=== PATIENT | male | born 1960 | race Native Hawaiian/Other Pacific Islander ===

== ENCOUNTER 2016-10-30 16:39 | Outpatient (CLI) | payer OTHER | END 2016-10-30 16:40 | disposition home or self-care (01) | LOC: AMB 16:39 | DX: R06.02 Shortness of breath (principal); R53.1 Weakness | CPT/HCPCS: A0425; A0427 ==

== ENCOUNTER 2016-10-30 16:46 | Observation (INO) | payer OTHER ==
[~2016-10-30] VITALS: Ht 170.2 cm; Wt 59.0 kg
[2016-10-30] VITALS (11 sets, daily range): BP systolic 108–181; BP diastolic 49–96; TEMP 97–98.1; Ht 170.2 cm; Wt 59.0 kg
[2016-10-30 17:09] LABS: PLATELET COUNT 227 K/uL (142-355)
[2016-10-30 17:18] LABS: POTASSIUM 3.8 mmol/L (3.6-5.2); SODIUM 138 mmol/L (136-145)
[2016-10-31] VITALS (13 sets, daily range): BP systolic 103–135; BP diastolic 50–78; TEMP 97–98.1
[2016-10-31 06:18] LABS: POTASSIUM 4.2 mmol/L (3.6-5.2); SODIUM 136 mmol/L (136-145)
[2016-10-31 06:30] LABS: PLATELET COUNT 182 K/uL (142-355)
[2016-11-01] VITALS (17 sets, daily range): BP systolic 106–158; BP diastolic 47–88; TEMP 97.4–98.3
[2016-11-01 06:54] LABS: PLATELET COUNT 222 K/uL (142-355)
[2016-11-01 07:26] LABS: POTASSIUM 3.7 mmol/L (3.6-5.2); SODIUM 136 mmol/L (136-145)
== END 2016-11-01 16:30 | disposition left against medical advice (07) ==
LOC: ED 16:46 → MED/SURG 17:37 → ICU 20:55
PROVIDERS: Emergency Medicine; ADMIT Family Medicine
DX: J44.1 Chronic obstructive pulmonary disease with (acute) exacerbation (principal); R07.89 Other chest pain; R09.02 Hypoxemia; F10.20 Alcohol dependence, uncomplicated
CPT/HCPCS: 36415; 36600; 80048; 80053; 80307; 80320; 81000; 82550; 82805; 83036; 83605; 83735; 83880; 84484; 85027; 87040; 87804; 93005; 94640; 94664; 94760; 96365; 96367; 96374; 99220; 99284; G0378; G0479; J0456; J0696; J1885; J2060; J2920; J2930

== ENCOUNTER 2017-02-16 16:24 | Observation (INO) | payer OTHER ==
[~2017-02-16] VITALS: Ht 167.6 cm; Wt 62.2 kg
[2017-02-16 17:14] VITALS: BP 171/90; TEMP 97.6; Ht 167.6 cm; Wt 62.2 kg
[2017-02-16 18:08] LABS: PLATELET COUNT 257 K/uL (142-355)
[2017-02-16 18:12] LABS: SODIUM 138 mmol/L (136-145)
[2017-02-16 19:17] LABS: PARTIAL THROMBOPLASTIN TIME 26.6 SECONDS (24.5-33.6)
[2017-02-16 20:00] VITALS: BP 105/63; TEMP 98.1
[2017-02-17] VITALS: BP 114/52; TEMP 97.5
[2017-02-17 04:00] VITALS: BP 116/49; TEMP 97.5
[2017-02-17 04:28] LABS: PLATELET COUNT 215 K/uL (142-355)
[2017-02-17 04:51] LABS: SODIUM 138 mmol/L (136-145)
[2017-02-17 08:00] VITALS: BP 119/68; TEMP 98
[2017-02-17 12:00] VITALS: BP 126/62; TEMP 98.2
[2017-02-17 16:00] VITALS: BP 114/58; TEMP 97.9
== END 2017-02-17 18:21 | disposition home or self-care (01) ==
LOC: MED/SURG 16:24
PROVIDERS: ADMIT Family Medicine
DX: J44.1 Chronic obstructive pulmonary disease with (acute) exacerbation (principal); I25.2 Old myocardial infarction; I10 Essential (primary) hypertension
CPT/HCPCS: 36415; 36600; 80053; 82805; 83036; 83735; 85027; 85610; 85730; 93005; 94640; 94664; 94760; 96365; 96366; 96367; 96374; 99220; G0378; G0379; J0696; J1885; J2930

== ENCOUNTER 2017-02-25 16:01 | Outpatient (CLI) | payer OTHER | END 2017-02-25 19:09 | disposition home or self-care (01) | LOC: RAD 16:01 | DX: M54.5 Low back pain (principal) ==

== ENCOUNTER 2017-04-28 16:00 | Observation (INO) | payer OTHER ==
[~2017-04-28] VITALS: Ht 165.1 cm; Wt 66.3 kg
[2017-04-28 17:49] VITALS: BP 115/60; TEMP 97.7; Ht 165.1 cm; Wt 66.3 kg
[2017-04-28 17:54] LABS: PLATELET COUNT 254 K/uL (142-355)
[2017-04-28 18:11] LABS: SODIUM 140 mmol/L (136-145)
[2017-04-28 20:19] VITALS: BP 130/65; TEMP 98.4
[2017-04-29] VITALS: BP 111/48; TEMP 98.3
[2017-04-29 04:00] VITALS: BP 122/67; TEMP 97.3
[2017-04-29 06:29] LABS: PLATELET COUNT 229 K/uL (142-355); POTASSIUM 3.7 mmol/L (3.6-5.2); SODIUM 137 mmol/L (136-145)
[2017-04-29 08:00] VITALS: BP 119/56; TEMP 98.3
== END 2017-04-29 12:35 | disposition home or self-care (01) ==
LOC: MED/SURG 16:00
PROVIDERS: ADMIT Family Medicine
DX: J44.9 Chronic obstructive pulmonary disease, unspecified (principal)
CPT/HCPCS: 36415; 36591; 80053; 83735; 85027; 90732; 93005; 94640; 94664; 94760; 96367; 96372; 96374; 99220; G0378; G0379; J1650; J2405; J2780; J2930

== ENCOUNTER 2017-06-24 11:40 | Outpatient (CLI) | payer OTHER | END 2017-06-24 21:18 | disposition home or self-care (01) | LOC: RAD 11:40 | DX: R10.13 Epigastric pain (principal) | CPT/HCPCS: 74022 ==

== ENCOUNTER 2017-07-14 07:47 | Day surgery (SDC) | payer OTHER ==
[2017-07-10 11:27] LABS: PLATELET COUNT 249 K/uL (142-355); POTASSIUM 4.5 mmol/L (3.6-5.2); SODIUM 134 mmol/L (136-145)
== END 2017-07-14 10:15 | disposition home or self-care (01) ==
LOC: OR 07:47
PROVIDERS: Student in an Organized Health Care Education/Training Program
PROC: 0DBP8ZZ Excision of Rectum, Via Natural or Artificial Opening Endoscopic (ICD-10-PCS; principal; 2017-07-14)
DX: D12.8 Benign neoplasm of rectum (principal); K62.1 Rectal polyp; Z12.11 Encounter for screening for malignant neoplasm of colon
CPT/HCPCS: 36415; 80053; 85027; J2001; J2250; J2704; J2765; J3010; J3490; S0028

== ENCOUNTER → 2017-10-10 01:40 | Outpatient (CLI) | payer OTHER | END | disposition home or self-care (01) | LOC: AMB 01:40 | DX: E86.0 Dehydration (principal) ==

== ENCOUNTER 2017-12-14 09:30 | Outpatient (CLI) | payer OTHER | END 2017-12-14 23:33 | disposition home or self-care (01) | LOC: MRI 09:30 | DX: M54.16 Radiculopathy, lumbar region (principal) ==

== ENCOUNTER 2018-01-26 15:42 | Outpatient (CLI) | payer OTHER | END 2018-01-26 20:02 | disposition home or self-care (01) | LOC: RAD 15:42 | DX: R07.81 Pleurodynia (principal) ==

== ENCOUNTER 2018-02-10 21:26 | Emergency (ER) | payer OTHER ==
[~2018-02-10] VITALS: Ht 170.2 cm; Wt 64.4 kg
[2018-02-11] VITALS: BP 134/77; TEMP 98.4
== END 2018-02-11 | disposition home or self-care (01) ==
LOC: ED 21:26
DX: S29.8XXA Other specified injuries of thorax, initial encounter (principal); W18.39XA Other fall on same level, initial encounter; Y92.89 Other specified places as the place of occurrence of the external cause
CPT/HCPCS: 99282; J1885

== ENCOUNTER 2018-02-18 09:44 | Observation (INO) | payer OTHER ==
[2018-02-18] VITALS (9 sets, daily range): BP systolic 113–148; BP diastolic 18–87; TEMP 97.8–98.1; Ht 160 cm; Wt 65.9 kg
[~2018-02-18] VITALS: Ht 160 cm; Wt 65.9 kg
[2018-02-18] MEDS ORDERED: BYSTOLIC10 MG PO (09:50)
[2018-02-18] MEDS ORDERED: TEMA30CA18 PO (09:51)
[2018-02-18] MEDS ORDERED: SERT50TA PO (09:51)
[2018-02-18] MEDS ORDERED: PROAIR HFA IN (09:52)
[2018-02-18] MEDS ORDERED: RANI150T78 PO (09:53)
[2018-02-18] MEDS ORDERED: BUDE1AER5 INH (09:53)
[2018-02-18 10:54] LABS: PLATELET COUNT 264 K/uL (142-355)
[2018-02-18 11:07] LABS: POTASSIUM 4.2 mmol/L (3.6-5.2)
[2018-02-18 11:30] LABS: PARTIAL THROMBOPLASTIN TIME 23.4 SECONDS (24.5-33.6)
[2018-02-18] MEDS ORDERED: PROVENTIL IN (18:09)
[2018-02-18] MEDS ORDERED: TRAM50TA PO (18:11)
[2018-02-19] VITALS: BP 131/53; TEMP 98.2
[2018-02-19 04:00] VITALS: BP 128/77; TEMP 98
[2018-02-19 08:00] VITALS: BP 139/79; TEMP 97.9
== END 2018-02-19 10:36 | disposition home or self-care (01) ==
LOC: ED 09:44 → MED/SURG 11:09
PROVIDERS: Family Medicine; ADMIT Family Medicine
DX: R07.89 Other chest pain (principal); I25.2 Old myocardial infarction; J44.1 Chronic obstructive pulmonary disease with (acute) exacerbation; S20.219A Contusion of unspecified front wall of thorax, initial encounter; W10.8XXA Fall (on) (from) other stairs and steps, initial encounter; Z91.81 History of falling; Y92.89 Other specified places as the place of occurrence of the external cause; Y99.8 Other external cause status
CPT/HCPCS: 36415; 80053; 82550; 84484; 85027; 85610; 85730; 93005; 94640; 94664; 94760; 96374; 96375; 99220; 99284; G0378; J1650; J1885; J2930

== ENCOUNTER 2018-03-01 12:15 | Outpatient (CLI) | payer OTHER ==
[~2018-03-01 12:15] MED LIST: BUDE1AER5 INH; BYSTOLIC10 MG PO; PROAIR HFA IN; PROVENTIL IN; RANI150T78 PO; SERT50TA PO; TEMA30CA18 PO; TRAM50TA PO
[2018-03-01 12:45] LABS: PLATELET COUNT 254 K/uL (142-355)
== END 2018-03-01 22:40 | disposition home or self-care (01) ==
LOC: CT 12:15 → LABW 12:15
PROVIDERS: Nurse Practitioner Family
DX: J40 Bronchitis, not specified as acute or chronic (principal); R91.1 Solitary pulmonary nodule
CPT/HCPCS: 36415; 85027

== ENCOUNTER 2018-04-10 22:30 | Emergency (ER) | payer OTHER ==
[~2018-04-10] VITALS: Ht 160 cm; Wt 63.0 kg
[2018-04-10 22:48] VITALS: BP 111/49; TEMP 97.8
== END 2018-04-10 23:38 | disposition home or self-care (01) ==
LOC: ED 22:30
DX: R04.2 Hemoptysis (principal)
CPT/HCPCS: 99281

== ENCOUNTER 2018-04-20 16:37 | Emergency (ER) | payer OTHER ==
[~2018-04-20] VITALS: Ht 160 cm; Wt 63.0 kg
[2018-04-20 18:00] VITALS: BP 130/84; TEMP 98
== END 2018-04-20 18:00 | disposition home or self-care (01) ==
LOC: ED 16:37
PROC: 0HQFXZZ Repair Right Hand Skin, External Approach (ICD-10-PCS; principal; 2018-04-20)
DX: S61.212A Laceration without foreign body of right middle finger without damage to nail, initial encounter (principal); W26.8XXA Contact with other sharp object(s), not elsewhere classified, initial encounter; Y93.89 Activity, other specified; Y92.012 Bathroom of single-family (private) house as the place of occurrence of the external cause
CPT/HCPCS: 90471; 90715; 99282

== ENCOUNTER 2018-04-26 13:10 | Emergency (ER) | payer OTHER ==
[~2018-04-26] VITALS: Ht 160 cm; Wt 63.0 kg
[2018-04-26 13:39] LABS: PLATELET COUNT 230 K/uL (142-355)
[2018-04-26 13:42] LABS: POTASSIUM 3.7 mmol/L (3.6-5.2)
[2018-04-26 15:15] VITALS: BP 144/76
== END 2018-04-26 15:30 | disposition home or self-care (01) ==
LOC: ED 13:11
DX: C34.90 Malignant neoplasm of unspecified part of unspecified bronchus or lung (principal); J98.01 Acute bronchospasm; R00.1 Bradycardia, unspecified
CPT/HCPCS: 80053; 82550; 82553; 84484; 85027; 93005; 94664; 96374; 99284; J2930

== ENCOUNTER 2018-05-02 12:22 | Emergency (ER) | payer OTHER ==
[~2018-05-02] VITALS: Ht 160 cm; Wt 63.0 kg
[2018-05-02 12:25] VITALS: TEMP 97.7
[2018-05-02 12:59] VITALS: BP 136/76
== END 2018-05-02 13:00 | disposition home or self-care (01) ==
LOC: ED 12:22
DX: Z48.02 Encounter for removal of sutures (principal)

== ENCOUNTER 2018-05-18 21:12 | Emergency (ER) | payer OTHER ==
[~2018-05-18] VITALS: Ht 160 cm; Wt 63.0 kg
[2018-05-18 22:28] LABS: PLATELET COUNT 192 K/uL (142-355)
[2018-05-18 22:48] LABS: POTASSIUM 3.8 mmol/L (3.6-5.2)
[2018-05-19 02:30] VITALS: BP 127/70; TEMP 98.6
== END 2018-05-19 02:30 | disposition short-term general hospital (02) ==
LOC: ED 21:12
PROVIDERS: Internal Medicine
DX: D73.5 Infarction of spleen (principal); R10.32 Left lower quadrant pain
CPT/HCPCS: 36415; 80053; 85027; 96374; 96375; 96376; 99285; J2270; J2405; Q9963

== ENCOUNTER 2018-07-01 12:34 | Outpatient (CLI) | payer OTHER | END 2018-07-01 20:10 | disposition home or self-care (01) | LOC: RAD 12:34 | DX: J44.1 Chronic obstructive pulmonary disease with (acute) exacerbation (principal) ==

== ENCOUNTER 2018-07-30 12:58 | Outpatient (CLI) | payer OTHER | END 2018-07-30 19:18 | disposition home or self-care (01) | LOC: CT 12:58 | DX: M54.2 Cervicalgia (principal) | CPT/HCPCS: 36415; 82565; 84520; Q9963 ==

== ENCOUNTER 2018-08-10 10:30 | Observation (INO) | payer OTHER ==
[~2018-08-10] VITALS: Ht 162.6 cm; Wt 66.8 kg
[2018-08-10 13:57] LABS: PLATELET COUNT 272 K/uL (142-355)
[2018-08-10 14:14] LABS: POTASSIUM 4.9 mmol/L (3.6-5.2)
[2018-08-10 14:24] VITALS: BP 123/73; TEMP 98.3; Ht 162.6 cm; Wt 66.8 kg
--- NOTE | 2018-08-10 14:49 | NUR ---
1450 CALLED TO ROOM PER PT . UPON ENTERING THE ROOM PT VERY ANXIOUS AND UPSET. PT DEMANDING TO SIGN OUT AMA. PT STATES HE UNDERSTANDS AND IS LEAVING RIGHT NOW. 1454 CHUCK NOTIFIED OF PTS DEMAND TO SIGN AMA 1455 PT SIGNED AMA AND LEFT FACILITY WITH AMBULATORY
== END 2018-08-10 14:51 | disposition left against medical advice (07) ==
LOC: MED/SURG 10:30 → ICU 10:52 → MED/SURG 11:31
PROVIDERS: Family Medicine; ADMIT Hospitalist
DX: J44.1 Chronic obstructive pulmonary disease with (acute) exacerbation (principal); I10 Essential (primary) hypertension; I25.2 Old myocardial infarction
CPT/HCPCS: 80053; 82805; 85027; 93005; 94664; 94760; 99220; G0378; G0379; J2930

== ENCOUNTER 2018-12-02 12:52 | Outpatient (CLI) | payer OTHER | END 2018-12-02 19:15 | disposition home or self-care (01) | LOC: CT 12:52 | DX: A31.0 Pulmonary mycobacterial infection (principal) ==

== ENCOUNTER 2019-05-19 13:15 | Outpatient (CLI) | payer OTHER | END 2019-05-19 23:24 | disposition home or self-care (01) | LOC: CT 13:15 | DX: R91.8 Other nonspecific abnormal finding of lung field (principal) ==

== ENCOUNTER 2019-07-18 16:30 | Observation (INO) | payer OTHER ==
[~2019-07-18] VITALS: Ht 152.4 cm; Wt 64.4 kg
[2019-07-18 16:44] VITALS: BP 124/93; TEMP 98.2
[2019-07-18 17:39] LABS: PLATELET COUNT 201 K/uL (142-355); POTASSIUM 5.3 mmol/L (3.6-5.2); SODIUM 130 mmol/L (136-145)
[2019-07-18 19:00] VITALS: BP 92/39
[2019-07-18 19:15] VITALS: BP 106/63
[2019-07-18 19:30] VITALS: BP 101/62; TEMP 99.9
[2019-07-18 20:22] VITALS: BP 120/59; TEMP 98; Ht 152.4 cm; Wt 64.4 kg
[2019-07-18 20:32] VITALS: BP 120/59; TEMP 98
[2019-07-19] VITALS: BP 111/52; TEMP 98.2
--- NOTE | 2019-07-19 00:02 | NUR ---
PT WAS ADMITTED AT 1953PM FROM ER. PT ADMITTED WITH BRONCHITIS/COPD. NS INFUSING AT 150 ML/HR VIA INFUSION PUMP. ALERT AND ORIENTED. ADMISSION ASSESSMENT WAS COMPLETED. NO COMPLAINTS VOICED. AT BEDSIDE. PT EATING MEAL. ATE 100 PERCENT. IV INTACT TO LEFT ANTECUBITAL AREA. SR UP. BEDSIDE TABLE IN EASY REACH.
--- NOTE | 2019-07-19 00:05 | NUR ---
PT WAS GIVEN HHN AND WAS COUGHING UP BLOOD TINGED THICK CLEAR SPUTUM. PT WITH HISTORY OF COPD AND A SMOKER. IV STARTED WITH A 20 GAUGE NEEDLE TO PT'S LEFT HAND. SUCCESSFUL. ANTIBIOTICS WERE STARTED.
[2019-07-19 04:00] VITALS: BP 109/55; TEMP 97.7
[2019-07-19 05:10] LABS: POTASSIUM 4.4 mmol/L (3.6-5.2)
[2019-07-19 05:34] LABS: PLATELET COUNT 178 K/uL (142-355)
[2019-07-19 05:44] LABS: PARTIAL THROMBOPLASTIN TIME 29.9 SECONDS (24.5-33.6)
[2019-07-19 08:00] VITALS: BP 110/52; TEMP 97.5
--- NOTE | 2019-07-19 10:30 | NUR ---
PATIENT STATED HE WANTED TO GO OUTSIDE TO SMOKE. INFORMED PATIENT AND EDUCATED HIM THAT SMOKING WOULD MAKE HIS SYMPTOMS WORSE- HE WAS INITIALLY ADMITTED FOR BRONCHITIS. PATIENT STATED " I NEED TO GO OUTSIDE AND SMOKIE". PATIENT AMBULATED TO THE FRONT ENTRANCE WITH SIGNIFICANT OTHER.
[2019-07-19 12:00] VITALS: BP 127/63; TEMP 97.9
--- NOTE | 2019-07-19 13:22 | NUR ---
PATIENT GIVEN DISCHARGE INSTRUCTIONS WITH VERBAL UNDERSTANDING NOTED. BOTH IVS DISCONTINUED WITH TIP INTACT. NO S/S OF INFILTRATION NOTED. PATIENT REMINDED TO KEEP .
== END 2019-07-19 13:24 | disposition home or self-care (01) ==
LOC: ED 16:30 → MED/SURG 19:33
PROVIDERS: Internal Medicine; ADMIT Emergency Medicine
DX: J98.4 Other disorders of lung (principal); R04.2 Hemoptysis; I25.10 Atherosclerotic heart disease of native coronary artery without angina pectoris; I10 Essential (primary) hypertension; I25.2 Old myocardial infarction; J44.9 Chronic obstructive pulmonary disease, unspecified; K21.9 Gastro-esophageal reflux disease without esophagitis; Z72.0 Tobacco use
CPT/HCPCS: 36415; 80048; 80053; 83605; 84484; 85027; 85379; 85610; 85730; 87502; 93005; 94664; 94760; 96360; 96365; 96375; 99220; 99284; G0378; J0456; J0696; J2930; J3490

== ENCOUNTER 2021-01-23 15:55 | Outpatient (CLI) | payer OTHER ==
[~2021-01-23 15:55] MED LIST changes: +CLARITIN10 MG PO; +DICL75TA4 PO; +LORA0.5T17 PO
== END 2021-01-23 21:38 | disposition home or self-care (01) ==
LOC: CT 15:55
PROVIDERS: ATTEND Registered Nurse
DX: R42 Dizziness and giddiness (principal); M54.2 Cervicalgia; M54.42 Lumbago with sciatica, left side; M54.6 Pain in thoracic spine

== ENCOUNTER 2021-02-04 15:18 | Emergency (ER) | payer OTHER ==
[~2021-02-04] VITALS: Ht 165.1 cm; Wt 66.2 kg
[2021-02-04 15:29] VITALS: TEMP 98.9
[2021-02-04 15:50] LABS: PLATELET COUNT 266 K/uL (142-355)
[2021-02-04 15:58] LABS: POTASSIUM 5.7 mmol/L (3.6-5.2); SODIUM 134 mmol/L (136-145)
[2021-02-04 17:00] VITALS: BP 129/70
== END 2021-02-04 17:20 | disposition home or self-care (01) ==
LOC: ED 15:18
PROVIDERS: Emergency Medicine
DX: J44.1 Chronic obstructive pulmonary disease with (acute) exacerbation (principal); E87.5 Hyperkalemia; R07.89 Other chest pain; F17.210 Nicotine dependence, cigarettes, uncomplicated
CPT/HCPCS: 80053; 82550; 83605; 83880; 84484; 85027; 85379; 93005; 94664; 96374; 99284; J2930

== ENCOUNTER 2021-04-08 14:00 | Outpatient (CLI) | payer OTHER | END 2021-04-08 21:07 | disposition home or self-care (01) | LOC: RAD 14:00 | PROVIDERS: ATTEND Registered Nurse | DX: M54.6 Pain in thoracic spine (principal); M54.2 Cervicalgia; M54.5 Low back pain ==

== ENCOUNTER 2021-07-29 20:28 | Emergency (ER) | payer OTHER ==
[~2021-07-29] VITALS: Ht 165.1 cm; Wt 66.2 kg
[2021-07-29 22:40] VITALS: BP 128/62; TEMP 98.7
== END 2021-07-29 22:40 | disposition home or self-care (01) ==
LOC: ED 20:28
DX: S20.211A Contusion of right front wall of thorax, initial encounter (principal); W01.198A Fall on same level from slipping, tripping and stumbling with subsequent striking against other object, initial encounter; Y92.89 Other specified places as the place of occurrence of the external cause
CPT/HCPCS: 96372; 99283; J1885

== ENCOUNTER 2022-01-31 11:16 | Outpatient (CLI) | payer OTHER | END 2022-01-31 18:58 | disposition home or self-care (01) | LOC: RAD 11:16 | PROVIDERS: ATTEND Nurse Practitioner Family | DX: R07.1 Chest pain on breathing (principal) ==

== ENCOUNTER 2022-06-12 16:23 | Outpatient (CLI) | payer OTHER | END 2022-06-12 19:27 | disposition home or self-care (01) | LOC: RAD 16:23 | PROVIDERS: ATTEND Registered Nurse | DX: M54.41 Lumbago with sciatica, right side (principal) ==

== ENCOUNTER 2022-08-04 10:38 | Emergency (ER) | payer OTHER ==
[~2022-08-04] VITALS: Ht 165.1 cm; Wt 58.1 kg
[2022-08-04 10:41] VITALS: TEMP 98.5
[2022-08-04 12:21] LABS: PLATELET COUNT 206 K/uL (142-355)
[2022-08-04 12:27] LABS: POTASSIUM 4.2 mmol/L (3.6-5.2)
[2022-08-04 12:37] LABS: PARTIAL THROMBOPLASTIN TIME 28.1 SECONDS (24.5-33.6)
[2022-08-04 17:20] VITALS: BP 107/55
== END 2022-08-04 17:25 | disposition short-term general hospital (02) ==
LOC: ED 10:38
PROVIDERS: Emergency Medicine Emergency Medical Services
DX: I25.10 Atherosclerotic heart disease of native coronary artery without angina pectoris (principal); J44.1 Chronic obstructive pulmonary disease with (acute) exacerbation; N17.9 Acute kidney failure, unspecified; Z11.52 Encounter for screening for COVID-19; F17.210 Nicotine dependence, cigarettes, uncomplicated
CPT/HCPCS: 36415; 36600; 80053; 80320; 81002; 82805; 83735; 84484; 85027; 85379; 85610; 85730; 87040; 87502; 87635; 93005; 94664; 96360; 96361; 99284; J0696; J1650; J2930; U0003

== ENCOUNTER 2022-08-27 12:42 | Emergency (ER) | payer OTHER ==
[~2022-08-27] VITALS: Ht 165.1 cm; Wt 58.1 kg
[2022-08-27 12:42] VITALS: TEMP 97.6
[2022-08-27 13:10] LABS: PLATELET COUNT 279 K/uL (142-355)
[2022-08-27 13:17] LABS: POTASSIUM 4.9 mmol/L (3.6-5.2)
[2022-08-27 14:30] VITALS: BP 147/84
== END 2022-08-27 14:34 | disposition left against medical advice (07) ==
LOC: ED 12:42
PROVIDERS: Family Medicine
DX: M94.0 Chondrocostal junction syndrome [Tietze] (principal); Z72.0 Tobacco use; W18.39XA Other fall on same level, initial encounter; Y92.89 Other specified places as the place of occurrence of the external cause; Z53.29 Procedure and treatment not carried out because of patient's decision for other reasons
CPT/HCPCS: 80053; 82550; 84484; 85027; 93005; 99284

== ENCOUNTER 2022-09-08 10:38 | Emergency (ER) | payer OTHER ==
[~2022-09-08] VITALS: Ht 165.1 cm; Wt 58.1 kg
[2022-09-08 10:43] VITALS: TEMP 98
[2022-09-08 11:02] VITALS: BP 133/64
== END 2022-09-08 12:10 | disposition home or self-care (01) ==
LOC: ED 10:38
PROC: 2W3DX1Z Immobilization of Left Lower Arm using Splint (ICD-10-PCS; principal; 2022-09-08)
DX: S62.175A Nondisplaced fracture of trapezium [larger multangular], left wrist, initial encounter for closed fracture (principal); Z98.890 Other specified postprocedural states; W01.0XXA Fall on same level from slipping, tripping and stumbling without subsequent striking against object, initial encounter; Y92.89 Other specified places as the place of occurrence of the external cause
CPT/HCPCS: 99283

== ENCOUNTER 2022-10-06 10:51 | Emergency (ER) | payer OTHER ==
[~2022-10-06] VITALS: Ht 165.1 cm; Wt 58.1 kg
[2022-10-06 11:27] LABS: PLATELET COUNT 283 K/uL (142-355)
[2022-10-06 11:35] LABS: POTASSIUM 4.3 mmol/L (3.6-5.2)
[2022-10-06 17:40] VITALS: BP 117/60; TEMP 98.5
== END 2022-10-06 17:40 | disposition short-term general hospital (02) ==
LOC: ED 10:51
PROVIDERS: Emergency Medicine Emergency Medical Services
DX: I20.0 Unstable angina (principal); I10 Essential (primary) hypertension; Z91.81 History of falling
CPT/HCPCS: 80053; 80307; 80320; 83735; 83880; 84484; 85027; 85379; 85610; 93005; 96360; 96361; 96372; 99284; J1650

== ENCOUNTER 2022-11-19 14:49 | Outpatient (CLI) | payer OTHER | END 2022-11-19 20:00 | disposition home or self-care (01) | LOC: US 14:49 | PROVIDERS: ATTEND Internal Medicine Cardiovascular Disease | DX: I73.9 Peripheral vascular disease, unspecified (principal) ==

== ENCOUNTER 2022-12-19 18:55 | Observation (INO) | payer OTHER ==
[~2022-12-19] VITALS: Ht 162.6 cm; Wt 60.0 kg
[2022-12-19 18:55] VITALS: BP 78/37; TEMP 98.7
[2022-12-19 19:30] VITALS: BP 113/38
[2022-12-19 19:45] LABS: PLATELET COUNT 389 K/uL (142-355)
[2022-12-19 19:47] LABS: POTASSIUM 5.3 mmol/L (3.6-5.2)
[2022-12-19 20:00] VITALS: BP 95/41
[2022-12-19 20:20] VITALS: BP 94/42
[2022-12-19 21:32] VITALS: BP 126/54; TEMP 97.5; Ht 162.6 cm; Wt 60.0 kg
[2022-12-19 23:17] VITALS: BP 131/53; TEMP 98.1
[2022-12-20 04:00] VITALS: BP 94/54; TEMP 97.7
[2022-12-20 05:28] LABS: PLATELET COUNT 295 K/uL (142-355)
[2022-12-20 05:40] LABS: POTASSIUM 4.7 mmol/L (3.6-5.2)
[2022-12-20 08:47] VITALS: BP 95/45; TEMP 97.8
[2022-12-20] MEDS ORDERED: ATEN50TA36 PO (09:19)
[2022-12-20] MEDS ORDERED: CYPROHEPTAD2 MG/5 M1 PO (09:20)
[2022-12-20] MEDS ORDERED: SERT100T PO (09:21)
[2022-12-20] MEDS ORDERED: METHOCARBAMOL PO (09:24)
[2022-12-20] MEDS ORDERED: PRED10TA27 PO (09:24)
[2022-12-20] MEDS ORDERED: NITROGLYCER0.2 MG/H1 TD (09:25)
[2022-12-20] MEDS ORDERED: RANOLAZINE ER500 MG PO (09:26)
[2022-12-20] MEDS ORDERED: DICL75TA4 PO (09:27)
[2022-12-20] MEDS ORDERED: KP FOLIC ACID1 MG PO (09:27)
[2022-12-20] MEDS ORDERED: LISI20TA11 PO (09:28)
[2022-12-20] MEDS ORDERED: PANTOPRAZOLE 40MG TA PO ×2 (09:30→09:31)
[2022-12-20] MEDS ORDERED: MULTIVITAMI1 PO (09:30)
[2022-12-20] MEDS ORDERED: THIA100T8 PO (09:31)
[2022-12-20] MEDS ORDERED: BRILINTA90 MG PO (09:32)
[2022-12-20] MEDS ORDERED: ASPIRIN 8181 MG PO (09:32)
[2022-12-20 11:54] VITALS: BP 99/52; TEMP 97.8
[2022-12-20] MEDS ORDERED: PROVENTIL108 MCG/AC INH (12:20)
== END 2022-12-20 13:21 | disposition home or self-care (01) ==
LOC: ED 18:55 → MED/SURG 20:00
PROVIDERS: ADMIT Internal Medicine; ATTEND Internal Medicine
DX: F10.129 Alcohol abuse with intoxication, unspecified (principal); I95.89 Other hypotension; I25.10 Atherosclerotic heart disease of native coronary artery without angina pectoris; I11.9 Hypertensive heart disease without heart failure; I25.2 Old myocardial infarction; J44.9 Chronic obstructive pulmonary disease, unspecified; W18.39XA Other fall on same level, initial encounter; Y92.89 Other specified places as the place of occurrence of the external cause
CPT/HCPCS: 80053; 80307; 80320; 81002; 85027; 96360; 96361; 96365; 99221; 99284; G0378

== ENCOUNTER 2023-02-02 05:11 | Observation (INO) | payer OTHER ==
[~2023-02-02] VITALS: Ht 160 cm; Wt 57.3 kg
[2023-02-02] VITALS (8 sets, daily range): BP systolic 82–111; BP diastolic 40–81; TEMP 97.5–97.9; Ht 160 cm; Wt 57.3 kg
[~2023-02-02 05:11] MED LIST changes: +ASPIRIN 8181 MG PO; +ATEN50TA36 PO; +BRILINTA90 MG PO; +CYPROHEPTAD2 MG/5 M1 PO; +KP FOLIC ACID1 MG PO; +LISI20TA11 PO; +METHOCARBAMOL PO; +MULTIVITAMI1 PO; +NITROGLYCER0.2 MG/H1 TD; +PANTOPRAZOLE 40MG TA PO; +PRED10TA27 PO; +PROVENTIL108 MCG/AC INH; +RANOLAZINE ER500 MG PO; +SERT100T PO; +THIA100T8 PO
[2023-02-02 05:28] LABS: PLATELET COUNT 280 K/uL (142-355)
[2023-02-02 05:41] LABS: PARTIAL THROMBOPLASTIN TIME 29.3 SECONDS (23.9-36.7)
[2023-02-02 05:42] LABS: POTASSIUM 3.8 mmol/L (3.6-5.2)
== END 2023-02-02 17:08 | disposition home or self-care (01) ==
LOC: ED 05:11 → MED/SURG 06:48
PROVIDERS: ADMIT Family Medicine; ATTEND Internal Medicine
DX: R07.89 Other chest pain (principal); N28.89 Other specified disorders of kidney and ureter; I95.89 Other hypotension; E86.9 Volume depletion, unspecified; F10.10 Alcohol abuse, uncomplicated; F17.210 Nicotine dependence, cigarettes, uncomplicated; C34.91 Malignant neoplasm of unspecified part of right bronchus or lung; W19.XXXA Unspecified fall, initial encounter; Y92.89 Other specified places as the place of occurrence of the external cause
CPT/HCPCS: 36415; 80053; 80320; 82550; 84484; 85027; 85610; 85730; 93005; 96360; 96366; 96372; 99221; 99284; G0378; J1650

== ENCOUNTER 2023-04-06 01:54 | Emergency (ER) | payer OTHER ==
[~2023-04-06] VITALS: Ht 160 cm; Wt 58.1 kg
[2023-04-06 02:55] VITALS: BP 142/65; TEMP 98.6
== END 2023-04-06 02:55 | disposition home or self-care (01) ==
LOC: ED 01:54
DX: S90.862A Insect bite (nonvenomous), left foot, initial encounter (principal); W57.XXXA Bitten or stung by nonvenomous insect and other nonvenomous arthropods, initial encounter; J44.9 Chronic obstructive pulmonary disease, unspecified; J45.909 Unspecified asthma, uncomplicated
CPT/HCPCS: 99282

== ENCOUNTER 2023-05-22 16:32 | Emergency (ER) | payer OTHER ==
[~2023-05-22] VITALS: Ht 160 cm; Wt 58.2 kg
[2023-05-22 16:59] LABS: PLATELET COUNT 318 K/uL (142-355)
[2023-05-22 23:15] VITALS: BP 112/61; TEMP 98
== END 2023-05-22 23:15 | disposition home or self-care (01) ==
LOC: ED 16:32
PROVIDERS: Family Medicine
DX: F10.129 Alcohol abuse with intoxication, unspecified (principal); Y90.9 Presence of alcohol in blood, level not specified; R06.00 Dyspnea, unspecified; F17.210 Nicotine dependence, cigarettes, uncomplicated
CPT/HCPCS: 80053; 85027; 96365; 99284; J3411; J3475; J3490

== ENCOUNTER 2023-10-25 18:20 | Emergency (ER) | payer OTHER ==
[~2023-10-25] VITALS: Ht 160 cm; Wt 54.4 kg
[2023-10-25 18:34] VITALS: TEMP 98
[2023-10-25] MEDS ORDERED: OXYCODONE PO ONE ×2 (19:33→19:37)
[2023-10-25] MEDS ORDERED: ACETAMINOPHEN PO ONE ×2 (19:33→19:37)
[2023-10-25 20:04] LABS: PLATELET COUNT 462 K/uL (142-355)
[2023-10-25 20:30] VITALS: BP 144/66
== END 2023-10-25 20:30 | disposition home or self-care (01) ==
LOC: ED 18:20
PROVIDERS: Family Medicine
DX: R07.81 Pleurodynia (principal); M54.89 Other dorsalgia; Z85.118 Personal history of other malignant neoplasm of bronchus and lung; Z72.0 Tobacco use
CPT/HCPCS: 36415; 80053; 85027; 87502; 87635; 87651; 99283; U0003